=== PATIENT | female | born 1925 | race Caucasian/White ===

== ENCOUNTER 2016-12-24 22:55 | Emergency (ER) | payer MEDICARE ==
[2016-12-24 23:03] VITALS: BP 171/83
--- NOTE | 2016-12-25 00:55 | ED ---
Head Injury - HPI Summary HPI Summary: 89F presents with head injury and laceration of right temporal region today. She tripped and fell on the right side of her face. She denies any LOC or vomiting. She is not on any blood thinners. She denies any other pain. She believes her tetanus is up to date. - History Of Current Complaint Chief Complaint: EDLacSutureRecheck Stated Complaint: FALL/HEAD LAC Time Seen by Provider: 12/25/16 00:47 Pain Intensity: 0 - Allergies/Home Medications Allergies/Adverse Reactions: Allergies Allergy/AdvReac Type Severity Reaction Status Date / Time No Known Allergies Allergy Verified 09/05/15 08:32 PMH/Surg Hx/FS Hx/Imm Hx Cardiovascular History: Reports: Hx Hypertension, Other Cardiovascular Problems/ Disorders - possible GA Denies: Hx Pacemaker/ICD History: Reports: Other Problems/Disorders - UTI Musculoskeletal History: Reports: Hx Arthritis, Hx Back Problems Sensory History: Reports: Hx Cataracts, Hx Contacts or Glasses, Hx Macular Degeneration Opthamlomology History: Reports: Hx Cataracts, Hx Contacts or Glasses, Hx Macular Degeneration Neurological History: Reports: Hx Headaches Denies: Hx Seizures, Hx Transient Ischemic Attacks (TIA) - Surgical History Surgery Procedure, Year, and Place: ORIF LEFT ANKLE 2000 - Immunization History Date of Influenza Vaccine: ukn Infectious Disease History: No Infectious Disease History: Denies: Traveled Outside the [place] in Last 30 Days - Social History Alcohol Use: None Substance Use Type: Reports: None Smoking Status (MU): Never Smoked Tobacco Have You Smoked in the Last Year: No Review of Systems Negative: Fever Negative: Chest Pain Negative: Shortness Of Breath Positive: Other - laceration right temporal region Positive: Headache All Other Systems Reviewed And Are Negative: Yes Physical Exam Triage Information Reviewed: Yes Vital Signs On Initial Exam: Initial Vitals Temp Pulse Resp BP Pulse Ox 97.2 F 89 18 171/83 100 12/24/16 23:00 12/24/16 23:00 12/24/16 23:00 12/24/16 23:00 12/24/16 23:00 Vital Signs Reviewed: Yes Appearance: Positive: Well-Appearing Skin: Positive: Warm, Dry, Other - 2 cm superficial laceration of right temporarily region Head/Face: Positive: Normal Head/Face Inspection, Other - no step off, racoon eyes, goodwin sign Eyes: Positive: Normal, EOMI, Conjunctiva Clear ENT: Positive: Normal ENT inspection, Pharynx normal, TMs normal Respiratory/Lung Sounds: Positive: Clear to Auscultation, Breath Sounds Present Cardiovascular: Positive: Normal, RRR Neurological: Positive: Sensory/Motor Intact, Alert, Oriented to Person Place, Time, CN Intact II-III - Romy Coma Scale Best Eye Response: 4 - Spontaneous Best Motor Response: 6 - Obeys Commands Best Verbal Response: 5 - Oriented Procedures - Laceration/Wound Repair 1 Location: face Description: Linear Length, Depth and Shape: 2cm superfical laceration Irrigated w/ Saline (ccs): 50 Closure: Skin Adhesive, SteriStrips Diagnostics - Vital Signs Vital Signs Temp Pulse Resp BP Pulse Ox 12/24/16 23:00 97.2 F 89 18 171/83 100 - Laboratory Lab Statement: Any lab studies that have been ordered have been reviewed, and results considered in the medical decision making process. - CT CT brain CT Interpretation: No Acute Changes CT Interpretation Completed By: Radiologist maxillary facial CT Interpretation: No Acute Changes - no acute fracture CT Interpretation Completed By: Radiologist Head Injury Course/Dx Course Of Treatment: 89F presents with head injury and laceration to face today. denies any LOC or vomiting or any other pain. no blood thinners. normal neuro exam. discussed due to being superficial glue vs sutures and patient would like glue which applied and place steri strips. CT head and maxillaryfacial no acute fracture. patient understands and agrees with plan - Diagnoses Differential Diagnosis/HQI/PQRI: Concussion Without LOC, Contusion, Laceration Provider Diagnoses: Laceration of face, Head injury Discharge - Discharge Plan Condition: Good Disposition: HOME Patient Education Materials: Skin Adhesive Care (ED) Referrals: Razia Valentino MD [Primary Care Provider] - Additional Instructions: Place ice on area Take Tylenol for pain as needed every 6 hours Glue will fall off on own Avoid scrubbing area Take off steri strips in 5 days if do not fall off on own Follow up with primary within 7 days Return to ED if develop any signs of infection or any new or worsening symptoms
--- NOTE | 2016-12-25 08:01 | RAD ---
Indication: Fall, head injury and temporal laceration CT of the brain was performed without IV contrast. Comparison is made with previous exam dated September 05, 2015. Ventricular structures are midline. No midline shift is noted. The extra-axial spaces are unremarkable. There is no evidence of intracranial mass or hemorrhage. No other high or low density lesions identified. Mastoid air cells and paranasal sinuses are otherwise unremarkable. IMPRESSION: No intracranial mass or hemorrhage is noted.
--- NOTE | 2016-12-25 08:06 | RAD ---
INDICATION: RIGHT temporal laceration post fall. COMPARISON: June 04, 2012 CT. TECHNIQUE: Multidetector CT base of the skull through mandible without contrast. Multiplanar reformation. REPORT: Minimal RIGHT temporal region scalp swelling. Negative for loculated hematoma or subcutaneous emphysema. Sequela of previous RIGHT zygomaticomaxillary complex fracture from 2011. No acute maxillofacial fracture evident. Senile morphology edentulous mandible. Normally located temporomandibular joints. Normally aerated paranasal sinuses and mastoid air spaces. Unremarkable orbital contents. IMPRESSION: No acute facial bone fractures.
== END 2016-12-25 01:56 | disposition home or self-care (01) ==
LOC: ED 22:55
DX: S01.81XA Laceration without foreign body of other part of head, initial encounter (principal); S09.90XA Unspecified injury of head, initial encounter; W01.0XXA Fall on same level from slipping, tripping and stumbling without subsequent striking against object, initial encounter; Y93.9 Activity, unspecified; Y92.9 Unspecified place or not applicable; I10 Essential (primary) hypertension; Z87.440 Personal history of urinary (tract) infections
CPT/HCPCS: 12011; 70450; 70486; 99281